=== PATIENT | female | born 1930 | race Caucasian/White ===

== ENCOUNTER 2017-12-10 16:10 | Inpatient (IN) | payer BC, MEDICAID ==
[2017-12-10] VITALS (8 sets, daily range): BP systolic 108–132
[~2017-12-10] VITALS: Ht 160 cm; Wt 56.7 kg
[~2017-12-10 16:10] MED LIST: ALPR1TAB7 PO; HYDR-3924 PO; LIDP TP; TEMA30CA5 PO; TRAM50TA92 PO
[2017-12-10 16:50] LABS: BASOPHILS # (AUTO) 0.3 K/uL (0.0-0.2)
[2017-12-10 16:57] LABS: MEAN CORPUSCULAR HGB CONC 33 % (32-36)
[2017-12-10 16:58] LABS: ANION GAP 15 (5-15); CALCIUM 8.2 mg/dL (8.4-11.0); CHLORIDE 92 mmol/L (98-107); CREATININE 2.45 mg/dL (0.55-1.30); SODIUM SERUM 127 mmol/L (136-145); UREA NITROGEN, BLOOD 38 mg/dL (8-21)
[2017-12-10 17:00] LABS: INR 1.5 (0.8-1.2); PROTHROMBIN TIME 15.2 SECS (9.5-12.5)
[2017-12-10] MEDS ORDERED: ALBUTEROL SULFATE 0.083% 2.5 MG/3 ML VIAL.NEB IH ONE (17:00)
[2017-12-10] MEDS ORDERED: IPRATROPIUM BROM 0.5 MG/2.5 ML VIAL.NEB (ATROVENT) IH ONE (17:00)
[2017-12-10 17:03] LABS: BASOPHILS % (AUTO) 2.8 % (0.0-2.0); HEMOGLOBIN 11.7 g/dL (12.0-16.0); LYMPHOCYTES # (AUTO) 2.1 K/uL (1.0-5.5); LYMPHOCYTES % (AUTO) 23.4 % (20.5-51.5); MEAN CORPUSCULAR HEMOGLOBIN 32 pg (27-31); MEAN CORPUSCULAR VOLUME 98 fL (79.0-98.0); MONOCYTES # (AUTO) 0.2 K/uL (0.0-1.0); MONOCYTES % (AUTO) 2.6 % (1.7-9.3); NEUTROPHILS # (AUTO) 6.4 K/uL (1.8-7.7); NEUTROPHILS % (AUTO) 71.2 % (40.0-70.0); PLATELET COUNT (AUTO) 171 K/uL (130-430); RED BLOOD CELL COUNT(AUTO) 3.66 MIL/uL (4.2-6.2); RED CELL DISTRIBUTION WIDTH 15.8 % (9.0-15.0)
[2017-12-10] MEDS ORDERED: DEXTROSE 50% JECT 50 ML DISP.SYRIN ONE (17:07)
[2017-12-10 17:13] LABS: ACETAMINOPHEN 8 ug/mL (1-30); ALANINE AMINOTRANSFERASE 13 U/L (12-78); ALBUMIN 2.6 g/dL (3.4-4.8); ASPARTATE AMINOTRANSFERASE 44 U/L (10-37); TOTAL BILIRUBIN 1.2 mg/dL (0.0-1.0)
[2017-12-10 17:15] LABS: POTASSIUM 6.3 mmol/L (3.5-5.1)
[2017-12-10 17:15] LABS: BILIRUBIN,URINE NEGATIVE (NEGATIVE); BLOOD, URINE 1+ (NEGATIVE); CLARITY/URINE CLOUDY (CLEAR); COLOR,URINE YELLOW (YELLOW); GLUCOSE,URINE NEGATIVE (NEGATIVE); KETONES,URINE NEGATIVE (NEGATIVE); LEUKOCYTE ESTERASE ,URINE 2+ (NEGATIVE); NITRITE, URINE NEGATIVE (NEGATIVE); PROTEIN URINE 2+ (NEGATIVE); UROBILINOGEN,URINE 0.2 (0.2-1.0)
[2017-12-10] MEDS ORDERED: ASPIRIN 300 MG/SUPP.RECT SUPP RC ONE (17:15)
[2017-12-10] MEDS ORDERED: NS 500 ML IV ONE (17:15)
[2017-12-10 17:16] LABS: ALCOHOL, BLOOD < 3 mg/dL (<10); GLUCOSE 24 mg/dL (70-99)
[2017-12-10 17:30] LABS: WBC,URINE >100 /HPF (0-3)
[2017-12-10] MEDS ORDERED: NOREPINEPHRINE BITARTRATE 4 MG in NS 246 ML IV ONE (17:30)
[2017-12-10 17:31] LABS: BACTERIA,URINE MODERATE /HPF (None Seen)
[2017-12-10 17:35] LABS: BARBITURATE, URINE NEGATIVE (NEG <=200); BENZODIAZEPINE, URINE POSITIVE (NEG <=150); CANNABINOID, URINE NEGATIVE (NEG <=50); COCAINE, URINE NEGATIVE (NEG <=150); METHAMPHETAMINES SCREEN,URINE NEGATIVE (NEG <=500); OPIATE, URINE POSITIVE (NEG <=100); PHENCYCLIDINE SCREEN,URINE NEGATIVE (NEG <=25); UR TRICYCLIC ANTIDEPRESSANTS NEGATIVE (NEG <=300); URINE AMPHETAMINE NEGATIVE (NEG <=500); URINE METHADONE NEGATIVE (NEG <=200); URINE OXYCODONE SCREEN NEGATIVE (NEG <=100); URINE PROPOXYPHENE SCREEN NEGATIVE (NEG <=300)
[2017-12-10] MEDS ORDERED: VANCOMYCIN HCL 1,000 MG in NS 250 ML IV ONE (17:45)
[2017-12-10] MEDS ORDERED: PIPERACILLIN/TAZO 3.375 GM in NS 50 ML IV ONE (17:45)
[2017-12-10] MEDS ORDERED: PIPERACILLIN/TAZOBACTAM 3.375 GM/VIAL (ZOSYN) IV ONE (17:56)
[2017-12-10] MEDS ORDERED: VANCOMYCIN HCL 1000 MG/VIAL IV ONE (17:57)
[2017-12-10] MEDS ORDERED: D5NS 1,000 ML IV SCH (18:11)
[2017-12-10] MEDS ORDERED: ACETAMINOPHEN 325 MG TABLET PO PRN (18:15)
[2017-12-10] MEDS ORDERED: ALBUTEROL SULFATE 0.083% 2.5 MG/3 ML VIAL.NEB INH PRN (18:15)
[2017-12-10] MEDS ORDERED: ONDANSETRON HCL 4 MG/2 ML VIAL IVP PRN (18:15)
[2017-12-10] MEDS ORDERED: LORazepam 2 MG/ML VIAL IVP PRN (18:15)
[2017-12-10] MEDS ORDERED: NACL 0.9% 1,000 ML IV ONE ×2 (18:30→20:00)
[2017-12-10] MEDS ORDERED: NS 250 ML IV ONE (19:30)
[2017-12-10] MEDS ORDERED: SODIUM POLYSTYRENE SULFONATE 15 GM/60 ML UDBTL PO ONE (21:00)
[2017-12-10] MEDS ORDERED: ALPRAZolam 0.25 MG TABLET PO PRN (21:30)
[2017-12-10] MEDS: ENOXAPARIN SODIUM 30 MG/0.3 ML SYRINGE SUBCUT SCH (22:14)
[2017-12-10] MEDS: HYDROcodone/ACETAMIN 10-325 MG TAB PO PRN (22:14)
[2017-12-10] MEDS ORDERED: INSULIN REGULAR, HUMAN 100 UNITS/ML, 10 ML VIAL (novoLIN R) SUBCUT PRN (22:15)
[2017-12-10] MEDS: MIRTAZAPINE 15 MG TABLET PO SCH (22:17)
[2017-12-11] VITALS (24 sets, daily range): BP systolic 92–157
[2017-12-11 01:16] LABS: ALANINE AMINOTRANSFERASE 83 U/L (12-78); ALBUMIN 2.4 g/dL (3.4-4.8); ANION GAP 10 (5-15); ASPARTATE AMINOTRANSFERASE 202 U/L (10-37); CALCIUM 7.8 mg/dL (8.4-11.0); CHLORIDE 94 mmol/L (98-107); CREATININE 2.56 mg/dL (0.55-1.30); GLUCOSE 131 mg/dL (70-99); POTASSIUM 5.9 mmol/L (3.5-5.1); SODIUM SERUM 127 mmol/L (136-145); TOTAL BILIRUBIN 0.8 mg/dL (0.0-1.0); UREA NITROGEN, BLOOD 38 mg/dL (8-21)
[2017-12-11] MEDS ORDERED: PIPERACILLIN/TAZOBACTAM 2.25 GM VIAL IV ONE (05:29)
[2017-12-11 05:46] LABS: ANION GAP 12 (5-15); CALCIUM 7.1 mg/dL (8.4-11.0); CHLORIDE 97 mmol/L (98-107); CREATININE 2.34 mg/dL (0.55-1.30); GLUCOSE 143 mg/dL (70-99); POTASSIUM 5.3 mmol/L (3.5-5.1); SODIUM SERUM 130 mmol/L (136-145); UREA NITROGEN, BLOOD 38 mg/dL (8-21)
[2017-12-11 05:48] LABS: BASOPHILS # (AUTO) 0.1 K/uL (0.0-0.2); BASOPHILS % (AUTO) 1.4 % (0.0-2.0); EOSINOPHILS % (AUTO) 0.1 % (0.0-4.0); HEMATOCRIT 33.1 % (36-48); HEMOGLOBIN 10.8 g/dL (12.0-16.0); LYMPHOCYTES # (AUTO) 2.8 K/uL (1.0-5.5); LYMPHOCYTES % (AUTO) 26.8 % (20.5-51.5); MEAN CORPUSCULAR HEMOGLOBIN 32 pg (27-31); MEAN CORPUSCULAR HGB CONC 33 % (32-36); MEAN CORPUSCULAR VOLUME 98 fL (79.0-98.0); MONOCYTES # (AUTO) 0.4 K/uL (0.0-1.0); MONOCYTES % (AUTO) 3.9 % (1.7-9.3); NEUTROPHILS # (AUTO) 7.3 K/uL (1.8-7.7); NEUTROPHILS % (AUTO) 67.8 % (40.0-70.0); PLATELET COUNT (AUTO) 179 K/uL (130-430); RED BLOOD CELL COUNT(AUTO) 3.36 MIL/uL (4.2-6.2); RED CELL DISTRIBUTION WIDTH 15.6 % (9.0-15.0); WHITE BLOOD COUNT (AUTO) 10.6 K/uL (4.8-10.8)
[2017-12-11] MEDS: PIPERACILLIN/TAZO 2.25G/DEX-IS 50 ML IV SCH ×3 (06:00→21:10)
[2017-12-11 06:02] LABS: ALANINE AMINOTRANSFERASE 76 U/L (12-78); ALBUMIN 2.1 g/dL (3.4-4.8); ASPARTATE AMINOTRANSFERASE 188 U/L (10-37); THYROID STIMULATING HORMONE 2.84 uIu/mL (0.36-3.74); TOTAL BILIRUBIN 0.5 mg/dL (0.0-1.0)
[2017-12-11] MEDS: LEVOTHYROXINE SODIUM 0.05 MG TABLET PO SCH (06:09)
[2017-12-11] MEDS: HYDROcodone/ACETAMIN 10-325 MG TAB PO PRN ×2 (08:45→19:48)
[2017-12-11] MEDS ORDERED: TEMA15CA51 PO (10:54)
[2017-12-11] MEDS ORDERED: LANS15CA5 PO (10:54)
[2017-12-11] MEDS ORDERED: FEN12PAT TD (10:54)
[2017-12-11] MEDS ORDERED: MIRT15TA7 PO (10:54)
[2017-12-11] MEDS ORDERED: HYDR-4100 PO (10:54)
[2017-12-11] MEDS ORDERED: LEVO50TA8 PO (10:54)
[2017-12-11] MEDS ORDERED: FURO-150 PO (10:54)
[2017-12-11] MEDS: NACL 0.9% 1,000 ML IV SCH (11:22)
[2017-12-11 12:15] LABS: ANION GAP 8 (5-15); CALCIUM 7.2 mg/dL (8.4-11.0); CHLORIDE 96 mmol/L (98-107); CREATININE 2.45 mg/dL (0.55-1.30); GLUCOSE 123 mg/dL (70-99); POTASSIUM 4.7 mmol/L (3.5-5.1); SODIUM SERUM 129 mmol/L (136-145); UREA NITROGEN, BLOOD 39 mg/dL (8-21)
[2017-12-11] MEDS ORDERED: FUROSEMIDE 20 MG/2 ML VIAL IVP ONE (13:00)
[2017-12-11] MEDS: ENOXAPARIN SODIUM 30 MG/0.3 ML SYRINGE SUBCUT SCH (21:09)
[2017-12-11] MEDS: MIRTAZAPINE 15 MG TABLET PO SCH (21:57)
[2017-12-12] VITALS (18 sets, daily range): BP systolic 86–152
[2017-12-12] MEDS: NACL 0.9% 1,000 ML IV SCH (00:20)
[2017-12-12] MEDS: HYDROcodone/ACETAMIN 10-325 MG TAB PO PRN ×3 (03:38→20:32)
[2017-12-12 05:39] LABS: BASOPHILS % (AUTO) 0.1 % (0.0-2.0); EOSINOPHILS % (AUTO) 0.6 % (0.0-4.0); HEMATOCRIT 33.8 % (36-48); HEMOGLOBIN 10.9 g/dL (12.0-16.0); LYMPHOCYTES % (AUTO) 33.8 % (20.5-51.5); MEAN CORPUSCULAR HEMOGLOBIN 31 pg (27-31); MEAN CORPUSCULAR HGB CONC 32 % (32-36); MEAN CORPUSCULAR VOLUME 97 fL (79.0-98.0); MONOCYTES # (AUTO) 0.3 K/uL (0.0-1.0); MONOCYTES % (AUTO) 4.3 % (1.7-9.3); NEUTROPHILS # (AUTO) 3.7 K/uL (1.8-7.7); NEUTROPHILS % (AUTO) 61.2 % (40.0-70.0); PLATELET COUNT (AUTO) 133 K/uL (130-430); RED CELL DISTRIBUTION WIDTH 15.6 % (9.0-15.0)
[2017-12-12 06:03] LABS: ALANINE AMINOTRANSFERASE 70 U/L (12-78); ALBUMIN 1.9 g/dL (3.4-4.8); ANION GAP 8 (5-15); ASPARTATE AMINOTRANSFERASE 103 U/L (10-37); CALCIUM 7.3 mg/dL (8.4-11.0); CHLORIDE 99 mmol/L (98-107); CREATININE 2.23 mg/dL (0.55-1.30); GLUCOSE 82 mg/dL (70-99); POTASSIUM 4.4 mmol/L (3.5-5.1); SODIUM SERUM 131 mmol/L (136-145); TOTAL BILIRUBIN 0.6 mg/dL (0.0-1.0); UREA NITROGEN, BLOOD 38 mg/dL (8-21)
[2017-12-12] MEDS: PIPERACILLIN/TAZO 2.25G/DEX-IS 50 ML IV SCH ×3 (06:04→21:51)
[2017-12-12] MEDS: LEVOTHYROXINE SODIUM 0.05 MG TABLET PO SCH (06:05)
[2017-12-12] MEDS ORDERED: DEXTROSE 50% JECT 50 ML DISP.SYRIN IVP PRN (07:15)
[2017-12-12] MEDS: D5NS 1,000 ML IV SCH ×2 (07:44→21:52)
[2017-12-12] MEDS ORDERED: FUROSEMIDE 20 MG/2 ML VIAL IVP SCH (09:00)
[2017-12-12] MEDS: ALPRAZolam 0.25 MG TABLET PO PRN ×2 (09:45→20:32)
[2017-12-12] MEDS ORDERED: NS 250 ML IV ONE (14:45)
[2017-12-12] MEDS: FUROSEMIDE 40 MG/4 ML VIAL IVP SCH (20:38)
[2017-12-12] MEDS ORDERED: VANCOMYCIN HCL 750 MG in NS 250 ML IV SCH (21:00)
[2017-12-12] MEDS: ENOXAPARIN SODIUM 30 MG/0.3 ML SYRINGE SUBCUT SCH (21:51)
[2017-12-13] VITALS: BP_SYST 102
[2017-12-13] MEDS: ALPRAZolam 0.25 MG TABLET PO PRN ×2 (04:21→21:58)
[2017-12-13] MEDS: HYDROcodone/ACETAMIN 10-325 MG TAB PO PRN ×3 (04:22→22:00)
[2017-12-13] MEDS: LEVOTHYROXINE SODIUM 0.05 MG TABLET PO SCH (06:07)
[2017-12-13] MEDS: PIPERACILLIN/TAZO 2.25G/DEX-IS 50 ML IV SCH ×3 (06:07→21:50)
[2017-12-13 06:51] LABS: BASOPHILS % (AUTO) 0.3 % (0.0-2.0); HEMATOCRIT 29.7 % (36-48); HEMOGLOBIN 9.6 g/dL (12.0-16.0); LYMPHOCYTES # (AUTO) 1.9 K/uL (1.0-5.5); LYMPHOCYTES % (AUTO) 43.5 % (20.5-51.5); MEAN CORPUSCULAR HEMOGLOBIN 32 pg (27-31); MEAN CORPUSCULAR HGB CONC 32 % (32-36); MEAN CORPUSCULAR VOLUME 99 fL (79.0-98.0); MONOCYTES # (AUTO) 0.2 K/uL (0.0-1.0); MONOCYTES % (AUTO) 5.3 % (1.7-9.3); NEUTROPHILS # (AUTO) 2.4 K/uL (1.8-7.7); NEUTROPHILS % (AUTO) 49.9 % (40.0-70.0); PLATELET COUNT (AUTO) 118 K/uL (130-430); RED BLOOD CELL COUNT(AUTO) 2.99 MIL/uL (4.2-6.2); RED CELL DISTRIBUTION WIDTH 15.8 % (9.0-15.0); WHITE BLOOD COUNT (AUTO) 4.5 K/uL (4.8-10.8)
[2017-12-13 07:17] LABS: ANION GAP 7 (5-15); CHLORIDE 102 mmol/L (98-107); CREATININE 1.86 mg/dL (0.55-1.30); GLUCOSE 109 mg/dL (70-99); POTASSIUM 4.1 mmol/L (3.5-5.1); SODIUM SERUM 136 mmol/L (136-145); UREA NITROGEN, BLOOD 31 mg/dL (8-21)
[2017-12-13 07:39] LABS: CALCIUM 6.8 mg/dL (8.4-11.0)
[2017-12-13] MEDS: FUROSEMIDE 40 MG/4 ML VIAL IVP SCH ×2 (09:00→21:49)
[2017-12-13] MEDS ORDERED: NACL 0.9% 1,000 ML IV SCH (10:45)
[2017-12-13 12:00] VITALS: BP_SYST 104
[2017-12-13 16:00] VITALS: BP_SYST 98
[2017-12-13 16:34] VITALS: BP_SYST 104
[2017-12-13 20:00] VITALS: BP_SYST 126
[2017-12-13] MEDS: MIRTAZAPINE 15 MG TABLET PO SCH (21:49)
[2017-12-13] MEDS: ENOXAPARIN SODIUM 30 MG/0.3 ML SYRINGE SUBCUT SCH (21:50)
[2017-12-14 01:21] VITALS: BP_SYST 140
[2017-12-14] MEDS: PIPERACILLIN/TAZO 2.25G/DEX-IS 50 ML IV SCH ×2 (05:36→14:53)
[2017-12-14] MEDS: LEVOTHYROXINE SODIUM 0.05 MG TABLET PO SCH (06:22)
[2017-12-14 06:34] LABS: ANION GAP 7 (5-15); CALCIUM 7.4 mg/dL (8.4-11.0); CHLORIDE 98 mmol/L (98-107); CREATININE 1.49 mg/dL (0.55-1.30); GLUCOSE 74 mg/dL (70-99); SODIUM SERUM 133 mmol/L (136-145); UREA NITROGEN, BLOOD 25 mg/dL (8-21)
[2017-12-14] MEDS: FUROSEMIDE 40 MG/4 ML VIAL IVP SCH (09:44)
[2017-12-14] MEDS: HYDROcodone/ACETAMIN 10-325 MG TAB PO PRN ×2 (09:45→18:24)
[2017-12-14 12:00] VITALS: BP_SYST 139
[2017-12-14 16:51] VITALS: BP_SYST 100
[2017-12-14 19:38] VITALS: BP_SYST 120
[2017-12-15] MEDS ORDERED: FUROSEMIDE 40 MG/4 ML VIAL IVP SCH (09:00)
== END 2017-12-14 21:03 | disposition home health service (06) | DRG 871 ==
LOC: SED 16:10 → SIC 18:11 → STU 12-12 13:51
PROVIDERS: ADMIT Internal Medicine; ATTEND Internal Medicine
DX: A41.9 Sepsis, unspecified organism (principal); J18.9 Pneumonia, unspecified organism; I21.4 Non-ST elevation (NSTEMI) myocardial infarction; E43 Unspecified severe protein-calorie malnutrition; R65.21 Severe sepsis with septic shock; I50.23 Acute on chronic systolic (congestive) heart failure; N17.9 Acute kidney failure, unspecified; E11.649 Type 2 diabetes mellitus with hypoglycemia without coma; E87.5 Hyperkalemia; J44.0 Chronic obstructive pulmonary disease with (acute) lower respiratory infection; N39.0 Urinary tract infection, site not specified; E87.1 Hypo-osmolality and hyponatremia; I13.0 Hypertensive heart and chronic kidney disease with heart failure and stage 1 through stage 4 chronic kidney disease, or unspecified chronic kidney disease; F03.90 Unspecified dementia, unspecified severity, without behavioral disturbance, psychotic disturbance, mood disturbance, and anxiety; E03.9 Hypothyroidism, unspecified; G89.29 Other chronic pain; N18.9 Chronic kidney disease, unspecified; B96.20 Unspecified Escherichia coli [E. coli] as the cause of diseases classified elsewhere; F32.9 Major depressive disorder, single episode, unspecified; F41.9 Anxiety disorder, unspecified; M19.90 Unspecified osteoarthritis, unspecified site; I25.10 Atherosclerotic heart disease of native coronary artery without angina pectoris; K21.9 Gastro-esophageal reflux disease without esophagitis; Z86.73 Personal history of transient ischemic attack (TIA), and cerebral infarction without residual deficits; Z95.0 Presence of cardiac pacemaker; Z88.5 Allergy status to narcotic agent; Z79.899 Other long term (current) drug therapy; Z85.828 Personal history of other malignant neoplasm of skin; Z90.49 Acquired absence of other specified parts of digestive tract; Z68.22 Body mass index [BMI] 22.0-22.9, adult
CPT/HCPCS: 36415; 71045; 78579; 78580-TC; 80048; 80053; 80307; 81000-TC; 82962; 83605; 83880; 84443-TC; 84484; 85025; 85610-TC; 85730-TC; 87040-TC; 87081; 87086; 87186-TC; 93005; 93306; 93970; 94640; 96365; 97110-GP; 99285; A9539; A9540; G0480; G0481; G0482; J1650; J1815; J1940; J2543; J3370; J7030; J7040; J7042; J7050; J7060; J7613